=== PATIENT | female | born 1955 | race Asian ===

== ENCOUNTER → 2016-07-01 | Outpatient (CLI) | payer BC ==
[~2016-07-01] MED LIST: NO HOME MEDICATIONS
== END ==
LOC: MC.RAD 10:17
DX: Z12.31 Encounter for screening mammogram for malignant neoplasm of breast (principal)

== ENCOUNTER → 2017-08-04 | Outpatient (CLI) | payer BC | LOC: MC.RAD 10:18 | DX: Z12.31 Encounter for screening mammogram for malignant neoplasm of breast (principal) ==

== ENCOUNTER → 2018-11-02 | Outpatient (CLI) | payer BC | LOC: MC.RAD 15:24 | DX: Z12.31 Encounter for screening mammogram for malignant neoplasm of breast (principal) ==

== ENCOUNTER → 2020-12-26 | Outpatient (CLI) | payer BC | LOC: MC.RAD 11:24 | DX: Z12.31 Encounter for screening mammogram for malignant neoplasm of breast (principal) ==

== ENCOUNTER → 2023-01-07 | Outpatient (CLI) | payer MEDICARE | LOC: CANSCHCLI → MC.RAD 13:00 | DX: Z12.31 Encounter for screening mammogram for malignant neoplasm of breast (principal) ==

== ENCOUNTER → 2024-01-13 | Outpatient (CLI) | payer MEDICARE | LOC: MC.RAD 12:50 | DX: Z12.31 Encounter for screening mammogram for malignant neoplasm of breast (principal) ==